=== PATIENT | female | born 1990 | race Caucasian/White ===

== ENCOUNTER → 2021-07-04 09:11 | Outpatient (BNVA) | payer OTHER, SELFPAY | PROVIDERS: PCP Family Medicine; Visit Provider Anesthesiology ==

== ENCOUNTER 2021-08-21 08:18 | Outpatient (REF) | payer OTHER, SELFPAY ==
--- NOTE | ~2021-08-21 | FL_ITS ---
EXAMINATION: XR FLUOROSCOPY WITH IMAGES CLINICAL INFORMATION: Pelvic and perineal pain. COMPARISON: None. TECHNIQUE: Fluoroscopy performed by Marisol Parr NP. Fluoroscopy time: 1.1 minutes DAP: 10.7 Gy-cm2 Images: 3 FINDINGS: There are 2 needles positioned in the prelumbar space with contrast opacifying the prelumbar space. The L4-L5 and L5-S1 disc level is normal. The L4-L5 vertebral heights are normal. FL/FL guidance in treatment room IMPRESSION: Fluoroscopy was provided to referring physician for pain management.
== END 2021-08-21 08:19 | disposition home or self-care (01) ==
LOC: HO.RADIR 08:18
PROVIDERS: Visit Provider Anesthesiology
DX: G89.29 Other chronic pain (principal); R10.2 Pelvic and perineal pain; E28.2 Polycystic ovarian syndrome; N80.9 Endometriosis, unspecified; N94.6 Dysmenorrhea, unspecified
CPT/HCPCS: 64517; J3300; Q9967

== ENCOUNTER → 2021-09-26 10:36 | Outpatient (BNVA) | payer OTHER, SELFPAY | PROVIDERS: PCP Family Medicine; Visit Provider Anesthesiology ==

== ENCOUNTER → 2023-05-07 14:21 | Outpatient (BNVA) | payer SELFPAY | PROVIDERS: PCP Family Medicine | DX: Z02.1 Encounter for pre-employment examination (principal) ==

== ENCOUNTER 2025-05-17 06:24 | Outpatient (REF) | payer OTHER, SELFPAY ==
--- NOTE | ~2025-05-17 | US_ITS ---
EXAMINATION: US PELVIS CLINICAL INFORMATION: Check IUD placement COMPARISON: None available. TECHNIQUE: Ultrasound of the pelvis is performed using both transabdominal and transvaginal transducers along with Doppler. Transvaginal imaging is performed due to inadequate visualization transabdominally. FINDINGS: Uterus: The uterus is anteverted and measures 7.5 x 3.3 x 4.4 cm. The double wall endometrial thickness is 2 mm. IUD in the uterus in satisfactory position. No endometrial fluid or mass. The uterus is smooth in contour and has normal myometrial echogenicity. No visible fibroid. Adnexa: Both ovaries are visualized. There is normal color flow to the adnexa. There is no ovarian torsion. There is no pelvic ascites or fluid collection. Right ovary measures 3 x 1.5 x 2.1 cm. Left ovary measures 3 x 1.7 x 1.7 cm. US/US pelvic and transvaginal IMPRESSION: IUD in the uterus in satisfactory position. Electronically signed by: Naty Soto MD 05/17/2025 04:19 PM EDT
--- OUTSIDE RECORDS SUMMARY | 2025-05-17 06:32 | XMS_ITS | Encounter Summary ---
Author Organization [facility] Address [address] [place] [address] Phone Care Team Providers Care Butcher Helper Name Role Phone Leelee Borjas MD Primary Care Provider [phone] Reason for Referral * MRI/CAT Scan - Closed Specialty Diagnoses / Procedures Referred By Nurys bentley Referred To Contact Radiology Diagnoses Nonintractable headache, unspecified chronicity pattern, unspecified headache type White matter disease MS (multiple sclerosis) Focal seizure Procedures MRI Brain Dave Potts MD Phone: tel: fax: [email or web address] Referral ID Status Reason Start Date Expiration Date Visits Re quested Visits Authorized [id number] Closed 11/08/2022 02/24/2023 1 1 Encounter Details Date Type Department Care Team (Latest Contact Info) Description 11/08/2022 Transcribe Orders Virtual Department [address] [place], [place] [id number] Dave Potts MD [address] [place] [address], [address] [place] [address] [email or web address] Nonintractable headache, unspecified chronicity pattern, unspecified headache type (Primary Dx); White matter disease; MS (multiple sclerosis); Focal seizure Social History Tobacco Use Types Packs/Day Years Used Date Smoking Tobacco: Never Smokeless Tobacco: Never Alcohol Use Standard Drinks/Week Comments Never 0 (1 standard drink = 0.6 oz pur e alcohol) Comments No Sex and Gender Information Value Date Recorded Sex Assigned at Female 09/19/2019 1:28 PM EST Legal Sex Female 4:18 PM EST Gender Identity Female 09/19/2019 1:28 PM EST Sexual Orientation Straight 09/19/2019 1: 28 PM EST documented as of this encounter Plan of Treatment Not on file documented as of this encounter Results * MRI BRAIN WITH AND WITHOUT CONTRAST (12/06/2022 3:20 PM EDT) Anatomical Region Laterality Modality Head Magnetic Resonan ce 12/08/2022 8:57 PM EDT Impressions 12/08/2022 9:55 PM EDT No intracranial cause for the reported symptoms identified. Narrative 12/08/2022 9:55 PM EDT MRI BRAIN WITH AND WITHOUT CONTRAST TECHNIQUE: MRI BRAIN WITH AND WITHOUT CONTRAST Multi-sequence, multi-planar MRI of the brain was performed before and after intravenous contrast. COMPARISON: Brain MRI 05/29/2020. FINDINGS: Brain Parenchyma: Few isolated punctate foci of T2/FLAIR hyperintensity, including the left frontal/subinsular white matter on 5:15 and subjacent to the right superior frontal gyrus on 5:25, unlikely to be of clinical significance. No evidence of acute infarct, mass lesion, or hemorrhage. Ventricular System and Extra-Axial Spaces: Normal. No evidence of midline shift or hydrocephalus. Extracranial Structures: Arterial flow voids in the skull base are present. Procedure Note Cody Sam MD - 12/08/2022 MRI BRAIN WITH AND WITHOUT CONTRAST TECHNIQUE: MRI BRAIN WITH AND WITHOUT CONTRAST Multi-sequence, multi-planar MRI of the brain was performed before andafter intravenous contrast. COMPARISON: Brain MRI 05/29/2020. FINDINGS: Brain Parenchyma: Few isolated punctate foci of T2/FLAIR hyperintensity,including the left frontal/subinsular white matter on 5:15 and subjacentto the right superior frontal gyrus on 5:25, unlikely to be of clinicalsignificance. No evidence of acute infarct, mass lesion, or hemorrhage. Ventricular System and Extra-Axial Spaces: Normal. No evidence of midlineshift or hydrocephalus. Extracranial Structures: Arterial flow voids in the skull base arepresent. IMPRESSION: No intracranial cause for the reported symptoms identified. Dave Potts MD IMG MR HEAD/NECK Final Resul t documented in this encounter Visit Diagnoses Diagnosis Nonintractable headache, unspecified chronicity pattern, unspecified headache type- Primary White matter disease MS (multiple sclerosis) Multiple sclerosis Focal seizure Other convulsions Nonintractable headache, unspecified chronicity pattern, unspecified headache type White matter disease MS (multiple sclerosis) Multiple sclerosis Focal seizure Other convulsions documented in this encounter Care Teams Butcher Helper Relationship Specialty Start Date End Date Leelee Borjas MD [address] [place] [phone] [email or web address] PCP - General Family Medicine 06/04/19 documented as of this encounter Additional Source Comments The information contained in this document represents components of the legal health record. It is not the complete legal health record.[facility]
--- OUTSIDE RECORDS SUMMARY | 2025-05-17 06:32 | XMS_ITS | Encounter Summary ---
Author Organization [facility] Address [address] [place] [address] Phone Care Team Providers Care Merchant Tailor Name Role Phone Leelee Borjas MD Primary Care Provider [phone] Encounter Details Date Type Department Care Team (Late st Contact Info) Description 09/17/2023 Procedure Pass [facility] - [address] [place] [address] Social History Tobacco Use Types Packs/Day Years Used Date Smoking Tobacco: Never Smokeless Tobacco: Never Alcohol Use Standard Drinks/Week Comments Never 0 (1 standard drink = 0.6 oz pur e alcohol) Education Answer Date Recorded Are you interested in more education? Not on amita e 11/22/2022 Are you concerned about learning? Not on file 11/22/2022 No 11/22/2022 No 11/22/2022 Digital Access Answer Date Recorded No 12/24/2022 No 12/24/2022 Reliable internet access at home? Not on file 12/24/2022 Device with a working camera? Not on file Comments No Sex and Gender Information Value Date Recorded Sex Assigned at Female 09/19/2019 1:28 PM EST Legal Sex Female 4:18 PM EST Gender Identity Female 09/19/2019 1:28 PM EST Sexual Orientation Straight 09/19/2019 1 :28 PM EST documented as of this encounter Plan of Treatment Not on file documented as of this encounter Visit Diagnoses Not on filedocumented in this encounter Care Teams Merchant Tailor Relationship Specialty Start Date End Date Leelee Borjas MD [address] [place] [address] [email or web address] PCP - General Family Medicine 06/04/19 documented as of this encounter Additional Source Comments The information contained in this document represents components of the legal health record. It is not the complete legal health record.[facility]
--- OUTSIDE RECORDS SUMMARY | 2025-05-17 06:32 | XMS_ITS | Encounter Summary ---
Author Organization [email or web address] Address [address] [place] [address] Phone Care Team Providers Care Equity Research Associate Name Role Phone Leelee Borjas MD Primary Care Provider [phone] Encounter Details Date Type Department Care Team (Late st Contact Info) Description 01/09/2022 Procedure Pass [address] [place] [address] Social History Tobacco Use Types Packs/Day Years [...] on filedocumented in this encounter Care Teams Equity Research Associate Relationship Specialty Start Date End Date Leelee Borjas MD [address] [place] [address] [place] [address] [email or web address] PCP - General Family Medicine 06/04/19 documented as of this encounter Additional Source Comments The information contained in this document represents components of the legal health record. It is not the complete legal health record.[facility]
--- OUTSIDE RECORDS SUMMARY | 2025-05-17 06:32 | XMS_ITS | Encounter Summary ---
Author Organization [facility] Address [address] [place] [address] Phone Care Team Providers Care Summer Camp Counselor Name Role Phone Leelee Borjas MD Primary Care Provider [phone] Encounter Details Date Type Department Care Team (Late st Contact Info) Description 10/18/2020 Procedure Pass [facility] [address] [place] [address] Social History Tobacco Use Types Packs/Day Years [...] on filedocumented in this encounter Care Teams Summer Camp Counselor Relationship Specialty Start Date End Date Leelee Borjas MD [address] [place] [address] [email or web address] PCP - General Family Medicine 06/04/19 documented as of this encounter Additional Source Comments The information contained in this document represents components of the legal health record. It is not the complete legal health record.[facility]
--- OUTSIDE RECORDS SUMMARY | 2025-05-17 06:32 | XMS_ITS | Encounter Summary ---
Author Organization [facility] Address [address] [place] [address] Phone Care Team Providers Care Documentation Designer Name Role Phone Leelee Borjas MD Primary Care Provider [phone] Encounter Details Date Type Department Care Team (Late st Contact Info) Description 03/15/2020 Transcribe Orders Virtual Department [address] [place] [address] Leelee Borjas MD [address] [place] [address] [email or web address] Paresthesia of skin (Primary Dx) Social History Tobacco Use Types Packs/Day Years Used Date Smoking Tobacco: Never Smokeless Tobacco: Never Alcohol Use Standard Drinks/Week Comments Never 0 (1 standard drink = 0.6 oz pur e alcohol) Comments Unknown Sex and Gender Information Value Date Recorded Sex Assigned at Female 09/19/2019 1:28 PM EST Legal Sex Female 4:18 PM EST Gender Identity Female 09/19/2019 1:28 PM EST Sexual Orientation Straight 09/19/2019 1: 28 PM EST documented as of this encounter Plan of Treatment Not on file documented as of this encounter Visit Diagnoses Diagnosis Paresthesia of skin- Primary documented in this encounter Care Teams Documentation Designer Relationship Specialty Start Date End Date Leelee Borjas MD [address] [place] [address] [email or web address] PCP - General Family Medicine 06/04/19 documented as of this encounter Additional Source Comments The information contained in this document represents components of the legal health record. It is not the complete legal health record.[facility]
--- OUTSIDE RECORDS SUMMARY | 2025-05-17 06:32 | XMS_ITS | Encounter Summary ---
Author Organization [facility] Address [address] [place] [address] Phone Care Team Providers Care Prefitter Name Role Phone Leelee Borjas MD Primary Care Provider [phone] Encounter Details Date Type Department Care Team (Late st Contact Info) Description 02/21/2022 Procedure Pass [address] [place] [address] Social History Tobacco Use Types Packs/Day Years [...] on filedocumented in this encounter Care Teams Prefitter Relationship Specialty Start Date End Date Leelee Borjas MD [address] [place] [address] [place] [address] [email or web address] PCP - General Family Medicine 06/04/19 documented as of this encounter Additional Source Comments The information contained in this document represents components of the legal health record. It is not the complete legal health record.[facility]
--- OUTSIDE RECORDS SUMMARY | 2025-05-17 06:32 | XMS_ITS | Encounter Summary ---
Author Organization [facility] Address [address] [place] [address] Phone Care Team Providers Care Carpet Inspector Name Role Phone Leelee Borjas MD Primary Care Provider [phone] Encounter Details Date Type Department Care Team (Late st Contact Info) Description 09/17/2023 Procedure Pass [facility] - [address] [place] [address] Social History Tobacco Use Types Packs/Day Years [...] on filedocumented in this encounter Care Teams Carpet Inspector Relationship Specialty Start Date End Date Leelee Borjas MD [address] [place] [address] [email or web address] PCP - General Family Medicine 06/04/19 documented as of this encounter Additional Source Comments The information contained in this document represents components of the legal health record. It is not the complete legal health record.[facility]
--- OUTSIDE RECORDS SUMMARY | 2025-05-17 06:32 | XMS_ITS | Encounter Summary ---
Author Organization [facility] Address [address] [place] [address] Phone Care Team Providers Care Bumboater Name Role Phone Leelee Borjas MD Primary Care Provider [phone] Encounter Details Date Type Department Care Team (Late st Contact Info) Description 03/14/2020 Procedure Pass [facility] - [address] [address] Social History Tobacco Use Types Packs/Day Years [...] on filedocumented in this encounter Care Teams Bumboater Relationship Specialty Start Date End Date Leelee Borjas MD [address] [place] [address] [email or web address] PCP - General Family Medicine 06/04/19 documented as of this encounter Additional Source Comments The information contained in this document represents components of the legal health record. It is not the complete legal health record.[facility]
--- OUTSIDE RECORDS SUMMARY | 2025-05-17 06:32 | XMS_ITS | Encounter Summary ---
Author Organization [employer] [facility] Address [address] [place] [address] Phone Care Team Providers Care Highway Technician Name Role Phone Leelee Borjas MD Primary Care Provider [phone] Leelee Borjas MD Unavailable Encounter Details Date Type Department Care Team (Late st Contact Info) Description 07/13/2019 Procedure Pass [facility], [address] [address] Social History Tobacco Use Types Packs/Day Years Used Date Smoking Tobacco: Never Assessed Comments Unknown Sex and Gender Information Value Date Recorded Sex Assigned at Female 09/19/2019 1:28 PM EST Legal Sex Female 4:18 PM EST Gender Identity Female 09/19/2019 1:28 PM EST Sexual Orientation Straight 09/19/2019 1: 28 PM EST documented as of this encounter Last Filed Vital Signs Vital Sign Reading Time Taken Comments Blood Pressure - - Pulse - - Temperature - - Respiratory Rate - - Oxygen Saturation - - Inhaled Oxygen Concentration - - Weight 68.9 kg (152 lb) 07/14/2019 11:07 AM EST Height 162.6 cm (5' 4 ) 07/14/2019 11:07 AM EST Body Mass Index 26.09 07/14/2019 11:07 AM EST documented in this encounter Plan of Treatment Not on file documented as of this encounter Visit Diagnoses Not on filedocumented in this encounter Care Teams Highway Technician Relationship Specialty Start Date End Date Leelee Borjas MD [address] [place] [address] [email or web address] PCP - General Family Medicine 06/04/19 Leelee Borjas MD [address] [place] [address] [email or web address] 06/04/1903/13 documented as of this encounter Additional Source Comments The information contained in this document represents components of the legal health record. It is not the complete legal health record.[facility]
--- OUTSIDE RECORDS SUMMARY | 2025-05-17 06:32 | XMS_ITS | Encounter Summary ---
Author Organization [employer] [facility] Address [address] [place] [address] Phone Care Team Providers Care Accident Investigator Name Role Phone Leelee Borjas MD Primary Care Provider [phone] Leelee Borjas MD Primary Care Provider [phone] Leelee Borjas MD Unavailable [phone] Encounter Details Date Type Department Care Team (Latest Contact Info) Description 06/03/2019 Transcribe Orders Virtual Department [address] [place] [address] Dedrick Wilde MD [address] [place] [address] [phone] [email or web address] FH: colon cancer (Primary Dx); Nausea Social History Tobacco Use Types Packs/Day Years [...] documented as of this encounter Results * US Abdomen Complete (06/11/2019 11:39 AM EST) Anatomical Region Laterality Modality Abdomen Ultrasound 06/11/2019 11:5 7 AM EST Impressions 06/11/2019 11:59 AM EST No significant abnormality of the visualized upper abdominal visceral structures. POS - [id number] Narrative 06/11/2019 11:59 AM EST FINDINGS: The gallbladder is within normal limits in appearance without evidence of cholelithiasis or focal wall thickening. The intrahepatic bile ducts are nondilated and the common duct is within normal limits at 0.3 cm in diameter. The liver and spleen are within normal limits in size and display homogeneous parenchymal echotexture. The kidneys are within normal limits in size and sonographic appearance, with the right kidney slightly larger than the left. The pancreas and visualized portions of the proximal abdominal aorta and IVC are within normal limits in size and appearance. Procedure Note Armani Ferguson MD - 06/11/2019 FINDINGS: The gallbladder is within normal limits in appearance without evidence ofcholelithiasis or focal wall thickening. The intrahepatic bile ducts arenondilated and the common duct is within normal limits at 0.3 cm indiameter. The liver and spleen are within normal limits in size anddisplay homogeneous parenchymal echotexture. The kidneys are withinnormal limits in size and sonographic appearance, with the right kidneyslightly larger than the left. The pancreas and visualized portions ofthe proximal abdominal aorta and IVC are within normal limits in size andappearance. IMPRESSION: No significant abnormality of the visualized upper abdominal visceralstructures. POS - [id number] us Dedrick Wilde MD IMG US ABDOMEN Final Result documented in this encounter Visit Diagnoses Diagnosis FH: colon cancer- Primary Family history of malignant neoplasm of gastrointestinal tract Nausea Nausea alone FH: colon cancer Family history of malignant neoplasm of gastrointestinal tract Nausea Nausea alone documented in this encounter Care Teams Accident Investigator Relationship Specialty Start Date End Date Leelee Borjas MD [address] [place] [address] PCP - General Family Medicine 10/01/1806/03 Leelee Borjas MD [address] [place] [address] [email or web address] PCP - General Family Medicine 06/04/19 Leelee Borjas MD [address] [place] [address] [email or web address] Medicine 06/04/1903/13 documented as of this encounter Additional Source Comments The information contained in this document represents components of the legal health record. It is not the complete legal health record.[facility]
--- OUTSIDE RECORDS SUMMARY | 2025-05-17 06:32 | XMS_ITS | Encounter Summary ---
Author Organization [employer] [facility] Address [address] [place] [address] Phone Care Team Providers Care Formula Maker Name Role Phone Leelee Borjas MD Primary Care Provider [phone] Encounter Details Date Type Department Care Team (Late st Contact Info) Description 05/18/2020 Procedure Pass [address] [place] [address] Social History Tobacco Use Types Packs/Day Years [...] on filedocumented in this encounter Care Teams Formula Maker Relationship Specialty Start Date End Date Leelee Borjas MD [address] [place] [address] [place] [id number] [email or web address] PCP - General Family Medicine 06/04/19 documented as of this encounter Additional Source Comments The information contained in this document represents components of the legal health record. It is not the complete legal health record.[facility]
--- OUTSIDE RECORDS SUMMARY | 2025-05-17 06:32 | XMS_ITS | Encounter Summary ---
Author Organization [employer] [facility] Address [address] [place] [address] Phone Care Team Providers Care Director Of Federal Sales Name Role Phone Leelee Borjas MD Primary Care Provider [phone] Leelee Borjas MD Unavailable [phone] Reason for Referral * - Closed Specialty Diagnoses / Procedures Referred By Nurys bentley Referred To Contact Radiology Diagnoses Nausea Nausea without vomiting Procedures NM Gastric Emptying Dedrick Wilde MD Phone: tel: fax: mailto: Referral ID Status Reason Start Date Expiration Date Visits Re quested Visits Authorized [id number] Closed 07/08/2019 08/16/2019 1 1 Encounter Details Date Type Department Care Team (Latest Contact Info) Description 07/08/2019 Transcribe Orders Virtual Department [address] [place] [address] Dedrick Wilde MD [address] [place] [address] [phone] [email or web address] Nausea (Primary Dx); Nausea without vomiting Social History Tobacco Use Types Packs/Day Years [...] documented as of this encounter Results * NM GASTRIC EMPTYING SOLID PHASE (08/18/2019 1:31 PM EST) Anatomical Region Laterality Modality Abdomen, Pelvis Nuclear Medicine 08/18/2019 2:51 PM EST Impressions 08/18/2019 2:53 PM EST Normal gastric emptying study. No evidence for gastroparesis. POS - [id number] Narrative 08/18/2019 2:53 PM EST NM GASTRIC EMPTYING SOLID PHASE HISTORY: NAUSEA WITHOUT VOMITING COMPARISON: None. TECHNIQUE/DOSE: The patient is given an oral meal of 0.862 of Tc99m labeled sulfur colloid with egg whites, toast, jam and water. Evaluation of gastric emptying over four hours is obtained. NUCLEAR MEDICINE GASTRIC EMPTYING FINDINGS: At one hour there is 93.3% residual activity in the stomach which is slightly above the normal range (normal range at one hour 37-90%). At two hours there is 66.7% residual activity in the stomach which is slightly above the normal range (normal range at two hours 30-60%). At four hours there is 5.5% residual activity in the stomach which is within the normal range (normal range at four hours 0-10%. No obvious gastroesophageal reflux is seen. Procedure Note Anila Clark MD - 08/18/2019 NM GASTRIC EMPTYING SOLID PHASE HISTORY: NAUSEA WITHOUT VOMITING COMPARISON: None. TECHNIQUE/DOSE: The patient is given an oral meal of 0.862 of Re91jwvfmomw sulfur colloid with egg whites, toast, jam and water. Evaluationof gastric emptying over four hours is obtained. NUCLEAR MEDICINE GASTRIC EMPTYING FINDINGS: At one hour there is 93.3% residual activity in the stomach which isslightly above the normal range (normal range at one hour 37-90%). At two hours there is 66.7% residual activity in the stomach which isslightly above the normal range (normal range at two hours 30-60%). At four hours there is 5.5% residual activity in the stomach which iswithin the normal range (normal range at four hours 0-10%. No obvious gastroesophageal reflux is seen. IMPRESSION: Normal gastric emptying study. No evidence for gastroparesis. POS - [id number] Dedrick Wilde MD IMG NM ABDOMEN Final Result documented in this encounter Visit Diagnoses Diagnosis Nausea- Primary Nausea alone Nausea without vomiting Nausea Nausea alone Nausea without vomiting documented in this encounter Care Teams Director Of Federal Sales Relationship Specialty Start Date End Date Leelee Borjas MD [address] [place] [address] PCP - General Family Medicine 06/04/19 Leelee Borjas MD [address] [place] [address] Family Medicine 06/04/1903/13 documented as of this encounter Additional Source Comments The information contained in this document represents components of the legal health record. It is not the complete legal health record.[facility]
--- OUTSIDE RECORDS SUMMARY | 2025-05-17 06:32 | XMS_ITS | Clinical Summary ---
Author Organization [employer] [facility] Address [address] [place] [address] Phone Care Team Providers Care Director Of Publications Name Role Phone Leelee Borjas MD Primary Care Provider [phone] Allergies No known active allergies Medications lidocaine/me-steve /menthol/camph (CBD-KINGS WITH LIDOCAINE TP) by Topical (Top) route. Patient using CBD smokes for pain Active therapeutic multivitamin tablet Take 1 tablet by mouth daily. Active levonorgestreL (MIRENA) 20 mcg/24 hours (6 yrs) 52 mg intrauterine device 1 Device by Intrauterine route Once every 5 years. 1 026 Active traMADoL (ULTRAM) 50 mg tablet Take 50 mg by mouth every 6 (six) hours as needed for pain (specific location in comments). Active meloxicam (MOBIC) 7.5 MG tablet Take 1 tablet (7.5 mg total) by mouth daily. 30 tablet 1 Active letrozole (FEMARA) 2.5 mg tablet Take 1 tablet (2.5 mg total) by mouth daily. 90 tablet 2 2 Active Active Problems Problem Noted Date Diagnosed Date Pelvic mass 04/03/2022 Family History Medical History Relation Comments Alcohol abuse Father Hypertension Father Kidney cancer Father Colon cancer Maternal Aunt Colon cancer Maternal Grandfather Colon cancer Maternal Grandmother Alzheimer's disease Paternal Grandfather Stroke Paternal Grandmother Dysmenorrhea Sister 1 Post-traumatic stress disorder Sister 1 Polycystic ovary syndrome Sister 2 Relation Status Comments Brother Alive Father Maternal Aunt Maternal Grandfather Maternal Grandmother Paternal Grandfather Paternal Grandmother Sister 1 Alive Sister 2 Alive Social History Tobacco Use Types Packs/Day Years Used Date Smoking Tobacco: Never Smokeless Tobacco: Never Tobacco Cessation:Counseling Given: Not Answered Alcohol Use Standard Drinks/Week Comments Never 0 [...] Orientation Straight 09/19/2019 1: 28 PM EST Last Filed Vital Signs Vital Sign Reading Time Taken Comments Blood Pressure 110/76 05/04/2022 12:20 AM EDT Pulse 60 05/04/2022 12:20 AM EDT Temperature 36.6 C (97.9 F) 05/04/2022 12:20 AM EDT Respiratory Rate 18 05/04/2022 12:20 AM EDT Oxygen Saturation 99% 05/04/2022 12:20 AM EDT Inhaled Oxygen Concentration - - Weight 54.4 kg (120 lb) 12/03/2022 11:06 AM EDT Height 162.6 cm (5' 4 ) 12/03/2022 11:06 AM EDT Body Mass Index 20.6 12/03/2022 11:06 AM EDT Plan of Treatment Health Maintenance Due Date Last Done Comments DEPRESSION SCREENING 2003 HEPATITIS C SCREENING 2009 HIV ONE-TIME SCREENING (18-6 5 YEARS) 2009 PAP SMEAR 01/20/2012 INFLUENZA VACCINE (#1) 2025 1, 05/23/2020 COVID-19 VACCINE (2024-2 6 season) 2025 07/06/2021 IUD 10/18/2028 10/18/2020 Adult Td,Tdap Booster 04/10/2031 04/10/2021 SMOKING STATUS SCREENING (On ce After 26 Yrs) Completed 10/30/2023 HEPATITIS A VACCINES Aged Out No long er eligible based on patient's age to complete this topic HIB VACCINES Aged Out No longer eligi ble based on patient's age to complete this topic MENINGOCOCCAL VACCINES (ACWY) Aged Out No longer eligible based on patient's age to complete this topic MENINGOCOCCAL VACCINES (B) Aged Out N o longer eligible based on patient's age to complete this topic PNEUMOCOCCAL VACCINES (0-49 years) Aged Out No longer eligible b ased on patient's age to complete this topic Medical Devices Implanted Type Area Manufacturing Automation Engineer Device Identifier Shelf Expiration Date Model / Serial / Lot [facility] BountysourceELIAN BoatSetterT RedKLEVERT CIG WELLNYEE CIGELIAN [facility] CIGNA WELLFLEE DAYA MCDONNELL Care Teams Director Of Publications Relationship Specialty Start Date End Date Leelee Borjas MD [address] [place] [address] [email or web address] PCP - General Family Medicine 06/04/19 Additional Source Comments The information contained in this document represents components of the legal health record. It is not the complete legal health record.[facility]
--- OUTSIDE RECORDS SUMMARY | 2025-05-17 06:32 | XMS_ITS | Encounter Summary ---
Author Organization [employer] [facility] Address [address] [place] [address] Phone Care Team Providers Care Supervisor Feed House Name Role Phone Leelee Borjas MD Primary Care Provider [phone] Reason for Referral * MRI/CAT Scan - Closed Specialty Diagnoses / Procedures Referred By Nurys bentley Referred To Contact Radiology Diagnoses Left sided numbness Procedures MRI Brain Dave Potts MD Phone: tel: fax: mailto:[email or web address] Referral ID Status Reason Start Date Expiration Date Visits Re quested Visits Authorized [id number] Closed 05/18/2020 08/14/2020 1 1 Encounter Details Date Type Department Care Team (Latest Contact Info) Description 05/18/2020 Transcribe Orders Virtual Department [address] [place] [address] Dave Potts MD [address] [facility] [place], [place] [id number] [email or web address] Left sided numbness (Primary Dx) Social History Tobacco Use Types [...] * MRI BRAIN WITH AND WITHOUT CONTRAST (05/29/2020 12:12 PM EST) Anatomical Region Laterality Modality Head Magnetic Resonan ce 05/29/2020 12:4 7 PM EST Impressions 05/29/2020 1:00 PM EST Stable nonenhancing small non-specific white matter signal abnormalities bilaterally. No additional intracranial pathology or interval change from 07/16/2019 apparent. POS [id number] Narrative 05/29/2020 1:00 PM EST TECHNIQUE: Exam performed on a 1.5 Marcela high-field MRI scanner. Axial T1, T2, T2 FLAIR, T2 GRE, and diffusion-weighted imaging with ADC map, sagittal T1 and T2 FLAIR sequences were obtained followed by axial and sagittal T1 after intravenous gadolinium administration. FINDINGS: Comparison is made with prior MR of 07/16/[address] of 03/14/2020. There is no evidence of intracranial hemorrhage, acute ischemia, or mass. There are small stable foci of hyperintense T2 signal in the right frontoparietal convexity and left periventricular frontal white matter radiations, without associated contrast enhancement. Remainder of the brain parenchyma displays essentially normal and stable rebolledo-white matter signal intensity and distribution. Ventricles and cerebral sulci are within normal limits in size. No pathologic extra-axial fluid collections have developed. No gross orbital lesion or significant paranasal sinus inflammatory changes are detected. Normal flow-voids appear to be preserved in the major intracranial arteries at the base. Procedure Note Derek Acevedo MD - 05/29/2020 TECHNIQUE: Exam performed on a 1.5 Marcela high-field MRI scanner. AxialT1, T2, T2 FLAIR, T2 GRE, and diffusion-weighted imaging with ADC map,sagittal T1 and T2 FLAIR sequences were obtained followed by axial andsagittal T1 after intravenous gadolinium administration. FINDINGS: Comparison is made with prior MR of 07/16/[address] of 03/14/2020. There is no evidence of intracranial hemorrhage, acute ischemia, or mass.There are small stable foci of hyperintense T2 signal in the rightfrontoparietal convexity and left periventricular frontal white matterradiations, without associated contrast enhancement. Remainder of thebrain parenchyma displays essentially normal and stable rebolledo-white mattersignal intensity and distribution. Ventricles and cerebral sulci arewithin normal limits in size. No pathologic extra-axial fluid collectionshave developed. No gross orbital lesion or significant paranasal sinusinflammatory changes are detected. Normal flow-voids appear to bepreserved in the major intracranial arteries at the base. IMPRESSION: Stable nonenhancing small non-specific white matter signal abnormalitiesbilaterally. No additional intracranial pathology or interval change from07/16/2019 apparent. POS [id number] Dave Potts MD IMG MR HEAD/NECK Final Resul t documented in this encounter Visit Diagnoses Diagnosis Left sided numbness- Primary Left sided numbness documented in this encounter Care Teams Supervisor Feed House Relationship Specialty Start Date End Date Leelee Borjas MD [address] [place] [phone] [email or web address] PCP - General Family Medicine 06/04/19 documented as of this encounter Additional Source Comments The information contained in this document represents components of the legal health record. It is not the complete legal health record.[facility]
--- OUTSIDE RECORDS SUMMARY | 2025-05-17 06:32 | XMS_ITS | Encounter Summary ---
Author Organization [employer] [facility] Address [address] [place] [address] Phone Care Team Providers Care Personnel Monitor Name Role Phone Leelee Borjas MD Primary Care Provider [phone] Encounter Details Date Type Department Care Team (Late st Contact Info) Description 11/30/2021 Transcribe Orders Virtual Department [address] [place] [address] Leelee Borjas MD [address] [place] [phone] [email or web address] Abnormal weight loss (Primary Dx); Abdominal pain, unspecified abdominal location Social History Tobacco Use Types Packs/Day Years [...] as of this encounter Visit Diagnoses Diagnosis Abnormal weight loss- Primary Loss of weight Abdominal pain, unspecified abdominal location documented in this encounter Care Teams Personnel Monitor Relationship Specialty Start Date End Date Leelee Borjas MD NPI: [id number] [place] [address] [email or web address] PCP - General Family Medicine 06/04/19 documented as of this encounter Additional Source Comments The information contained in this document represents components of the legal health record. It is not the complete legal health record.[facility]
--- OUTSIDE RECORDS SUMMARY | 2025-05-17 06:32 | XMS_ITS | Encounter Summary ---
Author Organization [employer] [facility] Address [address] [facility] [address] [place] [address] Phone Care Team Providers Care Knife Finisher Name Role Phone Leelee Borjas MD Primary Care Provider [phone] Leelee Borjas MD Unavailable [phone] Reason for Referral * MRI/CAT Scan - Closed Specialty Diagnoses / Procedures Referred By Nurys bentley Referred To Contact Radiology Diagnoses Nausea and vomiting, intractability of vomiting not specified, unspecified vomiting type Nonintractable headache, unspecified chronicity pattern, unspecified headache type Procedures MRI Brain Leelee Borjas MD Phone: tel: fax: mailto:[email or web address] Referral ID Status Reason Start Date Expiration Date Visits Re quested Visits Authorized [id number] Closed 07/13/2019 08/16/2019 1 1 Encounter Details Date Type Department Care Team (Late st Contact Info) Description 07/13/2019 Transcribe Orders Virtual Department [address] [place] [address] Leelee Borjas MD [address] [place] [address] [email or web address] Nonintractable headache, unspecified chronicity pattern, unspecified headache type (Primary Dx); Nausea and vomiting, intractability of vomiting not specified, unspecified vomiting type Social History Tobacco Use Types Packs/Day Years [...] of this encounter Results * MRI BRAIN WITHOUT CONTRAST (07/16/2019 2:26 PM EST) Anatomical Region Laterality Modality Head Magnetic Resonan ce 07/16/2019 5:25 PM EST Impressions 07/16/2019 5:40 PM EST 1. No intracranial mass, mass effect or acute ischemia. 2. There are two nonspecific foci of increased T2/T2 FLAIR signal in the bilateral frontal lobe white matter. Findings could be related to migraine plaques, if the patient has chronic migraines. 3. Mild paranasal sinus mucosal thickening. POS - [id number] Narrative 07/16/2019 5:40 PM EST EXAM: MRI BRAIN WITHOUT CONTRAST HISTORY: + NAUSEA/VOMITING [SIGN/SX] PERSISTENT NAUSEA AND OCCASIONAL VOMITING, FREQUENT HEADACHE. SEEN BY GASTRO /SCOPES WITH NO CAUSE FOUND NAUSEA WITH VOMITING, HEADACHE COMPARISON: None. TECHNIQUE: MRI brain without contrast. Exam performed on a 1.5 Marcela high-field MRI scanner with the following sequences: Axial T1, T2, T2*gradient echo, T2 FLAIR and DWI with ADC map, sagittal T1, sagittal FLAIR. MRI HEAD FINDINGS: Extra-axial spaces: The ventricles, sulci and cisternal spaces are normal in size and configuration. No abnormal extra-axial fluid collections. Brain: There is no intracranial hemorrhage. There is no midline shift, mass effect or brain edema. There are no abnormalities on the diffusion restriction to suggest acute or subacute ischemia. The cerebellar tonsils are normal in position. There are two punctate foci of increased T2/T2 FLAIR signal in the bilateral frontal lobe white matter. There is otherwise normal rebolledo matter and white matter signal. Bones: Normal bone marrow signal. Globes and orbits: Normal. Included paranasal sinuses and mastoid air cells: Normal signal of the mastoid air cells. There is minimal bilateral frontal and ethmoid air cell mucosal thickening. There is mild bilateral maxillary sinus mucosal thickening. The LEFT maxillary sinus is smaller than the RIGHT. Extracranial soft tissues: Normal. Vascular: Normal flow voids present within the major intracranial arteries at the skull base. Procedure Note Anila Clark MD - 07/16/2019 EXAM: MRI BRAIN WITHOUT CONTRAST HISTORY: + NAUSEA/VOMITING [SIGN/SX] PERSISTENT NAUSEA AND OCCASIONAL VOMITING, FREQUENT HEADACHE. SEEN BYGASTRO /SCOPES WITH NO CAUSE FOUND NAUSEA WITH VOMITING, HEADACHE COMPARISON: None. TECHNIQUE: MRI brain without contrast. Exam performed on a 1.5 Teslahigh-field MRI scanner with the following sequences: Axial T1, T2,T2*gradient echo, T2 FLAIR and DWI with ADC map, sagittal T1, sagittalFLAIR. MRI HEAD FINDINGS: Extra-axial spaces: The ventricles, sulci and cisternal spaces are normalin size and configuration. No abnormal extra-axial fluid collections. Brain: There is no intracranial hemorrhage. There is no midline shift,mass effect or brain edema. There are no abnormalities on the diffusionrestriction to suggest acute or subacute ischemia. The cerebellar tonsils are normal in position. There are two punctate foci of increased T2/T2 FLAIR signal in thebilateral frontal lobe white matter. There is otherwise normal rebolledo matterand white matter signal. Bones: Normal bone marrow signal. Globes and orbits: Normal. Included paranasal sinuses and mastoid air cells: Normal signal of themastoid air cells. There is minimal bilateral frontal and ethmoid air cellmucosal thickening. There is mild bilateral maxillary sinus mucosalthickening. The LEFT maxillary sinus is smaller than the RIGHT. Extracranial soft tissues: Normal. Vascular: Normal flow voids present within the major intracranial arteriesat the skull base. IMPRESSION: 1. No intracranial mass, mass effect or acute ischemia. 2. There are two nonspecific foci of increased T2/T2 FLAIR signal in thebilateral frontal lobe white matter. Findings could be related to migraineplaques, if the patient has chronic migraines. 3. Mild paranasal sinus mucosal thickening. POS - [id number] Leelee Borjas MD IMG MR HEAD/NECK Final Result documented in this encounter Visit Diagnoses Diagnosis Nonintractable headache, unspecified chronicity pattern, unspecified headache type- Primary Nausea and vomiting, intractability of vomiting not specified, unspecified vomiting type Nausea and vomiting, intractability of vomiting not specified, unspecified vomiting type Nonintractable headache, unspecified chronicity pattern, unspecified headache type documented in this encounter Care Teams Knife Finisher Relationship Specialty Start Date End Date Leelee Borjas MD [address] [place] [address] [email or web address] PCP - General Family Medicine 06/04/19 Leelee Borjas MD [address] [place] [address] [email or web address] 06/04/1903/13 documented as of this encounter Additional Source Comments The information contained in this document represents components of the legal health record. It is not the complete legal health record.[facility]
--- OUTSIDE RECORDS SUMMARY | 2025-05-17 06:32 | XMS_ITS | Encounter Summary ---
Author Organization [employer] [facility] Address [address] [place] [address] Phone Care Team Providers Care Certification Technician Name Role Phone Leelee Borjas MD Primary Care Provider [phone] Encounter Details Date Type Department Care Team (Late st Contact Info) Description 04/23/2022 Procedure Pass [address] [place] [address] Social History Tobacco Use Types Packs/Day Years [...] on filedocumented in this encounter Care Teams Certification Technician Relationship Specialty Start Date End Date Leelee Borjas MD [address] [place] [address] [place] [address] [email or web address] PCP - General Family Medicine 06/04/19 documented as of this encounter Additional Source Comments The information contained in this document represents components of the legal health record. It is not the complete legal health record.[facility]
--- OUTSIDE RECORDS SUMMARY | 2025-05-17 06:32 | XMS_ITS | Encounter Summary ---
Author Organization [facility], [facility]–1983 Address [address] [place] [phone] Phone Care Team Providers Care Certified Ophthalmic Surgical Assistant Name Role Phone Leelee Borjas MD Primary Care Provider [phone] Encounter Details Date Type Department Care Team (Late st Contact Info) Description 01/03/2022 Transcribe Orders Virtual Department [address] [place] [address] Osbaldo Schulz, MENAGERIE CARETAKER [address] [place] [phone] [email or web address] Abnormal weight loss (Primary Dx) Social History Tobacco Use Types [...] as of this encounter Results * US PELVIS TRANSABDOMINAL PLUS TRANSVAGINAL (01/07/2022 8:30 AM EDT) Anatomical Region Laterality Modality Pelvis, Uterus/Adnexa Ultrasound 01/08/2022 1:00 PM EDT Impressions 01/08/2022 1:06 PM EDT 1. Small, likely functional, cysts within the left ovary, the largest measuring 3.4 cm in maximal diameter. 2. Normal study of the uterus. T.i.d. appears adequately positioned. 3. No other abnormalities on pelvic ultrasound. Narrative 01/08/2022 1:06 PM EDT HISTORY: Weight loss, elevated estrogen levels, status-post IUD placement. EXAM: Transabdominal and transvaginal pelvic ultrasound. COMPARISON: Pelvic ultrasound 04/16/2021. FINDINGS: Uterus: Uterus is normal in size and echogenicity. It measures 8.3 cm x 5.0 cm x 3.3 cm similar to the previous ultrasound. The IUD appears adequately positioned within the endometrial canal. Endometrial stripe normal measuring 3 mm in thickness. No evidence of uterine masses. Ovaries: Right ovary is normal in size and demonstrates a normal follicular pattern. It measures 3.4 cm x 2.5 cm x 2.0 cm. Normal arterial and venous blood flow demonstrated to the ovary. There are 2 adjacent cysts within the left ovary, the larger measuring 3.4 cm x 3.2 cm x 2.0 cm. This contains a small daughter cyst . Smaller cyst has a simple appearance and measures 2.8 cm x 2.3 cm x 1.3 cm. The left ovary is enlarged but otherwise appears normal. The ovary measures 6.2 cm x 3.7 cm x 2.3 cm. Normal arterial and venous blood flow demonstrated within the ovary. Other: No evidence of free fluid. Procedure Note Amor Ochoa MD - 01/08/2022 HISTORY: Weight loss, elevated estrogen levels, status-post IUDplacement. EXAM: Transabdominal and transvaginal pelvic ultrasound. COMPARISON: Pelvic ultrasound 04/16/2021. FINDINGS: Uterus: Uterus is normal in size and echogenicity. It measures 8.3 cm x5.0 cm x 3.3 cm similar to the previous ultrasound. The IUD appearsadequately positioned within the endometrial canal. Endometrial stripenormal measuring 3 mm in thickness. No evidence of uterine masses. Ovaries: Right ovary is normal in size and demonstrates a normalfollicular pattern. It measures 3.4 cm x 2.5 cm x 2.0 cm. Normal arterialand venous blood flow demonstrated to the ovary. There are 2 adjacentcysts within the left ovary, the larger measuring 3.4 cm x 3.2 cm x 2.0cm. This contains a small daughter cyst . Smaller cyst has a simpleappearance and measures 2.8 cm x 2.3 cm x 1.3 cm. The left ovary isenlarged but otherwise appears normal. The ovary measures 6.2 cm x 3.7 cmx 2.3 cm. Normal arterial and venous blood flow demonstrated within theovary. Other: No evidence of free fluid. IMPRESSION: 1. Small, likely functional, cysts within the left ovary, the largestmeasuring 3.4 cm in maximal diameter. 2. Normal study of the uterus. T.i.d. appears adequately positioned. 3. No other abnormalities on pelvic ultrasound. us Laisa-Sheili Schulz MENAGERIE CARETAKER IMG US PELVIS Final Re sult documented in this encounter Visit Diagnoses Diagnosis Abnormal weight loss- Primary Loss of weight Abnormal weight loss Loss of weight documented in this encounter Care Teams Certified Ophthalmic Surgical Assistant Relationship Specialty Start Date End Date Leelee Borjas MD [address] [place] [phone] [email or web address] PCP - General Family Medicine 06/04/19 documented as of this encounter Additional Source Comments The information contained in this document represents components of the legal health record. It is not the complete legal health record.[facility]
--- OUTSIDE RECORDS SUMMARY | 2025-05-17 06:32 | XMS_ITS | Encounter Summary ---
Author Organization [facility] Address [address] [place] [phone] Phone Care Team Providers Care Design Lead Name Role Phone Leelee Borjas MD Primary Care Provider [phone] Encounter Details Date Type Department Care Team (Late st Contact Info) Description 04/18/2022 Procedure Pass [facility], [address] [address] Social History Tobacco Use Types Packs/Day Years [...] on filedocumented in this encounter Care Teams Design Lead Relationship Specialty Start Date End Date Leelee Borjas MD [address] [place] [phone] [email or web address] PCP - General Family Medicine 06/04/19 documented as of this encounter Additional Source Comments The information contained in this document represents components of the legal health record. It is not the complete legal health record.[facility]
--- OUTSIDE RECORDS SUMMARY | 2025-05-17 06:32 | XMS_ITS | Encounter Summary ---
Author Organization [employer] [facility] Address [email or web address] [place] [phone] Phone Care Team Providers Care Chemist Water Purification Name Role Phone Leelee Borjas MD Primary Care Provider [phone] Encounter Details Date Type Department Care Team (Late st Contact Info) Description 11/08/2022 Procedure Pass [address] [place] [address] Social History Tobacco Use Types Packs/Day Years [...] on filedocumented in this encounter Care Teams Chemist Water Purification Relationship Specialty Start Date End Date Leelee Borjas MD [address] [place] [address] [place] [address] [email or web address] PCP - General Family Medicine 06/04/19 documented as of this encounter Additional Source Comments The information contained in this document represents components of the legal health record. It is not the complete legal health record.[facility]
== END 2025-05-17 06:25 | disposition home or self-care (01) ==
LOC: HO.UMASIMG 06:24
PROVIDERS: Visit Provider Family Medicine
DX: Z30.431 Encounter for routine checking of intrauterine contraceptive device (principal); R53.82 Chronic fatigue, unspecified
CPT/HCPCS: 76830; 76856

== ENCOUNTER → 2025-05-17 13:04 | Outpatient (BNV) | payer OTHER, SELFPAY | PROVIDERS: Visit Provider Radiology Diagnostic Radiology | DX: Z30.431 Encounter for routine checking of intrauterine contraceptive device (principal) | CPT/HCPCS: 76830; 76856 ==